=== PATIENT | female | born 1985 | race Hispanic/Latino ===

== ENCOUNTER 2018-01-25 14:11 | Outpatient (CLI) | payer MEDICAID ==
--- NOTE | 2018-01-25 15:51 | ULT ---
PELVIC SONOGRAM TRANSABDOMINAL AND TRANSVAGINAL IMAGING WITH DUPLEX EVALUATION: 01/25/18 HISTORY: Pelvic pain and bleeding. FINDINGS: The urinary bladder is unremarkable. The uterus has a heterogeneous echotexture and is 9.7 cm. Endome trium is 1.3 cm. No free fluid. Nabothian cysts arise from the uterine cervix. The right ovary is 3.0 cm. Left ovary is 3.0 cm. Each ovary contains follicles and demonstrates good color and spectral dop pler flow. IMPRESSION: Normal pelvic sonogram. POS: [facility]
== END 2018-01-25 14:12 | disposition home or self-care (01) ==
LOC: SCSULT 14:11
PROVIDERS: ATTEND Family Medicine
DX: N92.0 Excessive and frequent menstruation with regular cycle (principal)
CPT/HCPCS: 76856